=== PATIENT | female | born 1985 | race Caucasian/White ===

== ENCOUNTER 2018-03-31 09:57 | Inpatient (IN) | payer BC, MEDICAID ==
[~2018-03-31] VITALS: Ht 170.2 cm; Wt 90.5 kg
[2018-03-31] VITALS (33 sets, daily range): BP systolic 100–131; BP diastolic 62–86; PULSE 50–109; TEMP 97.8–98.2
--- NOTE | 2018-03-31 10:05 | NUR ---
Pt arrives on unit ambulatory with spouse. States SROM at 0730 with clear fluid. Reports good FM. Denies vaginal bleeding and contractions. Changed into clean gown. EFM and toco applied. VSS. Amniotest positive. SVE per this RN /2. Dr. Artis notified of pt status. Orders for admission and to augment labor with pitocin. IV started in LH. Labs drawn. LR infusing. Admission assessment complete. Consents signed. Pt updated on plan of care. Oriented to room. Call light within reach. No questions or concerns at this time.
[2018-03-31] MEDS ORDERED: PRILOSEC 20MG20 MG PO (10:32)
[2018-03-31] MEDS ORDERED: CLARITIN 1010 MG/TAB PO (10:33)
[2018-03-31] MEDS ORDERED: PRENATAL MVI (10:33)
[2018-03-31 10:52] LABS: BASO % 0.5 % (0.0-2.0); EOS % 0.2 % (0-4.0); GRAN # 6.7 (1.4-6.5); GRAN % 78.2 % (42.2-75.2); HEMATOCRIT 38.1 % (37.0-47.0); LYMPH # 1.1 (1.2-3.4); LYMPH % 13.1 % (20.0-51.0); MEAN CELL VOLUME 93 fl (80.0-100.0); MEAN CORPUSCULAR HEMOGLOBIN 32 pg (27.0-31.0); MEAN CORPUSCULAR HGB CONC 34 g/dl (33.0-37.0); MEAN PLATELET VOLUME 12.2 fl (7.4-10.4); MONO # 0.6 (0.1-0.6); MONO % 7.5 % (1.7-9.3); PLATELET COUNT 205 K/mm3 (130-400); REDCELL DISTRIBUTION WIDTH-CV 12.1 % (11.5-14.5)
--- NOTE | 2018-03-31 12:20 | NUR ---
Dr. Artis at bedside. Reviews FHR strip and contraction pattern. SVE per provider /-2. Remaining forebag broken. Pericare provided. No new orders at this time.
--- NOTE | 2018-03-31 12:55 | NUR ---
Pt sitting upright for epidural placement. Difficulty tracing FHR due to maternal position. RN at bedside adjusting monitors. FHR audible. 1308-Test dose administered by Stephanie Davis CRNA. No adverse effects noted. See anesthesia record. 1315-Pt repositioned WL. Updated on plan of care. Safety reviewed. Call light within reach. No questions or concerns at this time.
--- NOTE | 2018-03-31 14:30 | NUR ---
Assumed care of patient. Rests in bed, alert, denies any needs at this time.
--- NOTE | 2018-03-31 15:45 | NUR ---
Rests in bed, alert. States having some trouble breathing. Says I have some anxiety. Says I cannot feel my legs. Anesthesia notified of decreasing medication on epidural. Vag exam done, dilated to six. See physicians notification please. Repositioned and warm blankets on.
--- NOTE | 2018-03-31 16:30 | NUR ---
States feeling more pressure. Vag exam done, has anterior lip. 1635 Dr. Artis notified. States will be up.
--- NOTE | 2018-03-31 16:45 | NUR ---
1658 Dr. Artis here. Reports complete. Pushes with patient. 1721 Spontaneous delivery of baby boy by Dr. rAtis. 1724 Spontaneous delivery of placenta by Dr. Artis. Pitocin 333ccs an hour infusing as ordered and per policy. Repair work done by Dr. Artis.
--- NOTE | 2018-03-31 17:30 | NUR ---
1739 Methergine 0.2 mg im given as ordered. Fundus massaged to firm.
--- NOTE | 2018-03-31 20:45 | NUR ---
Pt able to hold legs up bilaterally for 5 seconds. Fundus firm, midline and bleeding minimal. Pt assisted to edge of bed. Epidural catheter removed without difficulty. Pt ambulatory to bathroom one person assist. Pt able to void. Pericare provided. Mesh panties, pad, ice pack and tucks applied. Pt wheeled to room 214 and oriented to room. Call light within reach.
[2018-04-01 00:15] VITALS: BP 119/61; PULSE 52; TEMP 97.7
[2018-04-01 04:00] VITALS: BP 116/65; PULSE 55; TEMP 97.6
[2018-04-01 07:08] VITALS: BP 108/63; PULSE 58; TEMP 98.3
--- NOTE | 2018-04-01 09:59 | NUR ---
Initial visit; Parents thanked for offering congratulations for the of their son. thanked them for choosing [facility].
[2018-04-01 17:08] VITALS: BP 123/76; PULSE 76; TEMP 98.4
[2018-04-01 20:15] VITALS: BP 110/71; PULSE 64; TEMP 98.8
[2018-04-02 07:27] VITALS: BP 114/68; PULSE 78; TEMP 98.1
[2018-04-02] MEDS ORDERED: IBU600 MG PO (08:44)
== END 2018-04-02 14:00 | disposition home or self-care (01) | DRG 807 ==
LOC: LDRO 09:57 → LDR 10:19 → OB 10:19
PROVIDERS: ADMIT Student in an Organized Health Care Education/Training Program
PROC: 10E0XZZ Delivery of Products of Conception, External Approach (ICD-10-PCS; principal; 2018-03-31)
PROC: 0KQM0ZZ Repair Perineum Muscle, Open Approach (ICD-10-PCS; 2018-03-31)
DX: O70.1 Second degree perineal laceration during delivery (principal); Z37.0 Single live birth; Z3A.39 39 weeks gestation of pregnancy; O69.81X0 Labor and delivery complicated by cord around neck, without compression, not applicable or unspecified; O76 Abnormality in fetal heart rate and rhythm complicating labor and delivery; O75.89 Other specified complications of labor and delivery
CPT/HCPCS: J2210; J2590; J7120

== ENCOUNTER 2020-09-28 07:48 | Day surgery (SDC) | payer BC ==
[~2020-09-28] VITALS: Ht 170.2 cm; Wt 72.6 kg
[~2020-09-28 07:48] MED LIST: CLARITIN 1010 MG/TAB PO; IBU600 MG PO; PRENATAL MVI; PRILOSEC 20MG20 MG PO
[2020-09-28 08:24] VITALS: BP 116/91; PULSE 95; TEMP 98.7
[2020-09-28 10:00] VITALS: BP 107/78; PULSE 83; TEMP 98
--- NOTE | 2020-09-28 10:00 | NUR ---
Patient returned to [place] [facility] via cart, alert and oriented. Postop vital signs started. Juice, coffee and apple sauce provided. Will continue to monitor.
[2020-09-28 10:15] VITALS: BP 113/81; PULSE 87
--- NOTE | 2020-09-28 10:15 | NUR ---
Patient sitting up in chair, alert and oriented. Denies discomfort. Vital signs stable. Tolerating food and drink well. came in to speak with patient at 1007. Will continue to monitor.
[2020-09-28 10:30] VITALS: BP 110/73; PULSE 84
--- NOTE | 2020-09-28 10:30 | NUR ---
Patient sitting up in chair, alert and oriented. Tolerating food and drink. Vital signs stable. D/C IV with no complications. Reviewed discharge instructions and education material, verbalized understanding. Instructed to dress and open door when ready for transportation.
--- NOTE | 2020-09-28 10:45 | NUR ---
Patient transported via wheelchair to personal vehicle by staff. waiting to drive patient home.
== END 2020-09-28 10:45 | disposition home or self-care (01) ==
LOC: SDCO 07:48
DX: K62.89 Other specified diseases of anus and rectum (principal); K59.09 Other constipation; R10.32 Left lower quadrant pain; K92.1 Melena; F41.9 Anxiety disorder, unspecified; Z20.822 Contact with and (suspected) exposure to COVID-19; Z83.71 Family history of colonic polyps; Z80.0 Family history of malignant neoplasm of digestive organs; Z83.3 Family history of diabetes mellitus; Z80.42 Family history of malignant neoplasm of prostate
CPT/HCPCS: J2704; J7030

== ENCOUNTER 2020-11-14 14:33 | Emergency (ER) | payer BC ==
[~2020-11-14] VITALS: Ht 170.2 cm; Wt 72.7 kg
[2020-11-14 14:51] VITALS: TEMP 98.3
[2020-11-14 15:34] LABS: COLLECTION METHOD CLEAN CATCH
[2020-11-14 15:37] LABS: BASO % 0.6 % (0.0-2.0); EOS % 0.3 % (0-4.0); GRAN # 5.1 (1.4-6.5); GRAN % 78.2 % (42.2-75.2); HEMATOCRIT 37.8 % (37.0-47.0); HEMOGLOBIN 12.7 g/dl (12.5-16.0); LYMPH % 15.4 % (20.0-51.0); MEAN CELL VOLUME 91 fl (80.0-100.0); MEAN CORPUSCULAR HEMOGLOBIN 31 pg (27.0-31.0); MEAN CORPUSCULAR HGB CONC 34 g/dl (33.0-37.0); MEAN PLATELET VOLUME 10.8 fl (7.4-10.4); MONO # 0.3 (0.1-0.6); MONO % 5.2 % (1.7-9.3); PLATELET COUNT 260 K/mm3 (130-400); RED BLOOD COUNT 4.17 M/mm3 (4.10-5.30); REDCELL DISTRIBUTION WIDTH-CV 12.1 % (11.5-14.5)
[2020-11-14 15:43] LABS: PH 7 (5-8); SQUAMOUS EPITHELIAL 0-2 /hpf; URINE APPEARANCE Clear; URINE BACTERIA Rare /hpf; URINE BILIRUBIN Negative (NEGATIVE); URINE BLOOD 2+ (NEGATIVE); URINE COLOR Straw; URINE GLUCOSE Negative (NEGATIVE); URINE KETONE Trace (NEGATIVE); URINE LEUKOCYTE ESTERASE Trace (NEGATIVE); URINE NITRATE Negative (NEGATIVE); URINE PROTEIN(semi-quant) Negative (NEGATIVE); URINE RBC 0-2 /hpf; URINE UROBILINOGEN Negative (NEGATIVE)
[2020-11-14 15:51] LABS: ALANINE AMINOTRANSFERASE 8 U/L (4-34); ALBUMIN 4.5 gm/dL (3.5-5.0); ALKALINE PHOSPHATASE 46 U/L (50-136); ANION GAP 8 mmol/L (7-16); AST,SGOT 23 U/L (15-37); BILIRUBIN,TOTAL 0.6 mg/dL (0.0-1.0); BLOOD UREA NITROGEN 10 mg/dL (7-17); CALCIUM 9.5 mg/dL (8.4-10.2); CARBON DIOXIDE 23 mmol/L (22-30); CHLORIDE 107 mmol/L (98-107); CREATININE, serum 0.69 (0.52-1.25); GLUCOSE 100 mg/dL (74-106); SODIUM 137 mmol/L (137-145); TOTAL PROTEIN 7.8 gm/dL (6.4-8.2)
[2020-11-14 15:54] LABS: C-REACTIVE PROTEIN < 0.5 mg/dL (0.0-0.9)
[2020-11-14 16:05] LABS: HCG,QUANTITATIVE 475 mIU/mL (0-5)
[2020-11-14 17:37] VITALS: BP 112/74; PULSE 88
== END 2020-11-14 17:37 | disposition home or self-care (01) ==
LOC: COL.ER 14:33
PROVIDERS: Physician Assistant
DX: O26.891 Other specified pregnancy related conditions, first trimester (principal); R10.31 Right lower quadrant pain; Z3A.01 Less than 8 weeks gestation of pregnancy
CPT/HCPCS: J7030

== ENCOUNTER 2021-01-02 16:46 | Observation (INO) | payer BC, MEDICAID ==
[~2021-01-02] VITALS: Ht 170.2 cm; Wt 74.5 kg
[2021-01-02] VITALS (8 sets, daily range): BP systolic 86–123; BP diastolic 53–88; PULSE 58–96; TEMP 97.5–98.6
[2021-01-02 17:22] LABS: BASO % 0.3 % (0.0-2.0); EOS # 0.1 K/mm3 (0.0-0.7); EOS % 0.8 % (0-4.0); GRAN # 6.9 K/mm3 (1.4-6.5); GRAN % 77.3 % (42.2-75.2); HEMATOCRIT 38.6 % (37.0-47.0); LYMPH # 1.5 K/mm3 (1.2-3.4); LYMPH % 16.4 % (20.0-51.0); MEAN CELL VOLUME 92 fl (80.0-100.0); MEAN CORPUSCULAR HEMOGLOBIN 31 pg (27.0-31.0); MEAN CORPUSCULAR HGB CONC 34 g/dl (33.0-37.0); MEAN PLATELET VOLUME 10.4 fl (7.4-10.4); MONO # 0.5 K/mm3 (0.1-0.6); PLATELET COUNT 251 K/mm3 (130-400); RED BLOOD COUNT 4.18 M/mm3 (4.10-5.30); REDCELL DISTRIBUTION WIDTH-CV 12.3 % (11.5-14.5)
[2021-01-02] MEDS ORDERED: PRENATAL TABLET PO (17:22)
--- NOTE | 2021-01-02 18:52 | NUR ---
1655: PT. AMBULATORY TO UNIT W/ SPOUSE AND SON. PT. PRESENTING HERE FROM CLINIC FOR D&C W/ DR. KHAN. PT. APPROPRIATE. ESCORTED TO ROOM. GOWN ON. CONSENTS DOWN, IV PLACED, PRE-OP MEDS GIVEN, LR RUNNING. DISCUSSED POC WITH PT. AND SPOUSE. ASSESSMENTS COMPLETED.
[2021-01-02] MEDS ORDERED: NORCO 325 MG-51 TAB PO (19:12)
--- NOTE | 2021-01-02 21:26 | NUR ---
PT. ABLE TO TOLERATE PO SNACKS WELL AMBULATING TO BATHROOM TO VOID. PT. REQUESTING TO GO HOME. IV DISCONTINUED AND PT. CHANGED BACK INTO CLOTHES. PT. WHEELED TO ER ENTRANCE AND ASSISTED INTO PERSONAL VEHICLE W/ SPOUSE. DISCHARGE INSTRUCTIONS WENT OVER IN ROOM AND NO QUESTIONS FROM PT. PT. IN STABLE CONDITION
== END 2021-01-02 21:15 | disposition home or self-care (01) ==
LOC: OB 16:46
PROVIDERS: ADMIT Student in an Organized Health Care Education/Training Program
DX: O02.1 Missed abortion (principal); J30.9 Allergic rhinitis, unspecified; F53.0 Postpartum depression; F32.9 Major depressive disorder, single episode, unspecified; Z79.899 Other long term (current) drug therapy; Z83.3 Family history of diabetes mellitus; Z82.49 Family history of ischemic heart disease and other diseases of the circulatory system
CPT/HCPCS: J1885; J2210; J2405; J2704; J2765; J3010; J7120

== ENCOUNTER 2022-05-21 15:26 | Day surgery (SDC) | payer BC, MEDICAID ==
[2022-05-21] VITALS (9 sets, daily range): BP systolic 94–117; BP diastolic 53–76; PULSE 69–112; TEMP 98.1–98.6
[~2022-05-21] VITALS: Ht 172.7 cm; Wt 71.0 kg
[~2022-05-21 15:26] MED LIST changes: +NORCO 325 MG-51 TAB PO; +PRENATAL TABLET PO
[2022-05-21] MEDS ORDERED: ASPIRIN 81M81 MG/TA2 PO (16:35)
[2022-05-21] MEDS ORDERED: PROMETRIUM200 M1 VG (16:36)
[2022-05-21] MEDS ORDERED: ROXICODONE 55 MG/TAB PO (18:45)
--- NOTE | 2022-05-21 19:35 | NUR ---
PT TO UNIT VIA BED FROM PACU FOLLOWING LEFT SALPINGECTOMY DUE TO ECTOPIC AT 4.5 WEEKS. PT ALERT & ORIENTED X3, RATES PAIN AT 3/10, 3 BANDAIDS TO LOWER ABDOMEN, CDI. REPORT RECEIVED FROM NETTIE PACU NURSE.
--- NOTE | 2022-05-21 20:15 | NUR ---
SANDWICH BOX PROVIDED. PT RESTING COMFORTABLY, RATES PAIN AT 4/10, DENIES PAIN MEDS AT THIS TIME.
--- NOTE | 2022-05-21 21:15 | NUR ---
2099- PT UP TO BATHROOM, ABLE TO VOID 100ML WITHOUT DIFFICULTY. 2104- AMBULATED HALLS, THIS NURSE A PT'S SIDE BUT PT ABLE TO AMBULATE UNASSISTED. TOLERATED WELL. RATES PAIN AT 4-5/10 BUT DENIES PAIN MEDS. 2114- PT ASSISTED BACK TO ROOM, ENCOURAGED TO PUSH FLUIDS AND VOID AGAIN PRIOR TO DISCHARGE.
--- NOTE | 2022-05-21 22:15 | NUR ---
0- DISCHARGE INSTRUCTIONS REVIEWED WITH PT AND SPOUSE. HOME PACK OF PERCOCET (4 TABS) GIVEN TO SPOUSE. PT INSTRUCTED TO CALL THE OFFICE TOMORROW TO SCHEDULE FOLLOW UP IN 2 WEEKS. MAY TAKE PERCOCET THROUGHOUT THE EVENING PER BOTTLE INSTRUCTIONS FOR PAIN. PT AND SPOUSE VERBALIZE UNDERSTANDING. PT CHANGES INTO OWN CLOTHES. 5- PT OFF THE UNIT VIA WHEELCHAIR BY Ricardo WOOTEN [employer].
== END 2022-05-21 22:15 | disposition home or self-care (01) ==
LOC: SDCO 15:26
DX: O00.102 Left tubal pregnancy without intrauterine pregnancy (principal); N83.292 Other ovarian cyst, left side; E03.9 Hypothyroidism, unspecified; Z79.890 Hormone replacement therapy; Z90.721 Acquired absence of ovaries, unilateral; Z87.59 Personal history of other complications of pregnancy, childbirth and the puerperium
CPT/HCPCS: J0330; J1100; J1885; J2175; J2405; J2704; J3010; J7120

== ENCOUNTER 2022-05-25 12:37 | Emergency (ER) | payer MEDICAID ==
[~2022-05-25] VITALS: Ht 170.2 cm; Wt 72.7 kg
[~2022-05-25 12:37] MED LIST changes: +ASPIRIN 81M81 MG/TA2 PO; +PROMETRIUM200 M1 VG; +ROXICODONE 55 MG/TAB PO
[2022-05-25 13:34] LABS: BASO % 0.4 % (0.0-2.0); EOS # 0.1 K/mm3 (0.0-0.7); EOS % 0.9 % (0.0-4.0); GRAN # 7.1 K/mm3 (1.4-6.5); GRAN % 82.8 % (42.2-75.2); HEMOGLOBIN 11.5 g/dl (12.5-16.0); LYMPH # 0.9 K/mm3 (1.2-3.4); LYMPH % 10.4 % (20.0-51.0); MEAN CELL VOLUME 95 fl (80.0-100.0); MEAN CORPUSCULAR HEMOGLOBIN 30 pg (27-31); MEAN CORPUSCULAR HGB CONC 32 g/dl (33.0-37.0); MEAN PLATELET VOLUME 10.6 fl (7.4-10.4); MONO # 0.5 K/mm3 (0.1-0.6); MONO % 5.3 % (1.7-9.3); PLATELET COUNT 254 K/mm3 (130-400); RED BLOOD COUNT 3.79 M/mm3 (4.10-5.30); REDCELL DISTRIBUTION WIDTH-CV 12.1 % (11.5-14.5)
[2022-05-25 13:49] LABS: ALBUMIN 3.8 gm/dL (3.5-5.0); BILIRUBIN,TOTAL 0.4 mg/dL (0.2-1.2); CREATININE, serum 0.7 mg/dL (0.57-1.11); POTASSIUM 3.8 mmol/L (3.5-4.5)
[2022-05-25 13:54] LABS: HEMATOCRIT 35.9 % (37.0-47.0)
[2022-05-25 15:59] VITALS: BP 118/82; PULSE 98; TEMP 98.3
== END 2022-05-25 16:03 | disposition home or self-care (01) ==
LOC: COL.ER 12:37
PROVIDERS: Emergency Medicine
DX: N93.9 Abnormal uterine and vaginal bleeding, unspecified (principal); R10.30 Lower abdominal pain, unspecified; Z90.722 Acquired absence of ovaries, bilateral
CPT/HCPCS: J1885; J2405; J7120; Q9967